=== PATIENT | female | born 1960 | race American Indian/Alaskan Native ===

== ENCOUNTER 2021-01-20 02:06 | Emergency (ER) | payer SELFPAY ==
[2021-01-20 03:50] LABS: Basophils % (Auto) 0.4 % (0.0-1.8); Eosinophils # (Auto) 0.2 K/mm3 (0.0-0.4); Eosinophils % (Auto) 1.8 % (0.0-4.3); Hematocrit 43.7 % (30.3-42.9); Hemoglobin 15.2 gm/dl (10.1-14.3); Lymphocytes # (Auto) 2.5 K/mm3 (1.2-5.4); Lymphocytes % (Auto) 26.3 % (13.4-35.0); Mean Corpuscular HGB Conc 35 % (30-34); Mean Corpuscular Volume 95 fl (79-97); Monocytes # (Auto) 0.4 K/mm3 (0.0-0.8); Monocytes % (Auto) 4.5 % (0.0-7.3); Platelet Count 247 K/mm3 (140-440); Red Blood Count 4.61 M/mm3 (3.65-5.03); Red Cell Distribution Width 14.1 % (13.2-15.2)
--- NOTE | 2021-01-20 03:57 | XRay Report ---
CHEST 2 VIEWS, 01/20/2021 2:32 AM INDICATION: Chest pain COMPARISON: None FINDINGS: Support devices: None. Heart: The cardiac silhouette is normal in size. Lungs/pleura: The lungs are clear of focal airspace disease or significant pleural effusion. Additional findings: No significant acute abnormality. IMPRESSION: 1. No evidence of acute cardiopulmonary process. Signer Name: Stefanie Weathers MD Signed: 01/20/2021 3:53 AM Workstation Name: [id number]
[2021-01-20 04:14] LABS: Alanine Aminotransferase 15 units/L (7-56); Albumin 4.5 g/dL (3.9-5); BUN/Creatinine Ratio 12; Blood Urea Nitrogen 11 mg/dL (7-17); Calcium 9.3 mg/dL (8.4-10.2); Hemolysis Index 12
--- NOTE | 2021-01-20 14:15 | Emergency Department Report ---
ED General Adult HPI - General Chief complaint: High BP Stated complaint: HIGH BP/LT ARM PAIN PUI?: No Time Seen by Provider: 01/20/21 14:08 Source: patient, RN notes reviewed Mode of arrival: Ambulatory Limitations: No Limitations - History of Present Illness Initial comments: The patient was evaluated in the emergency department for symptoms described in the history of present illness. He/she was evaluated in the context of the global COVID-19 pandemic, which necessitated consideration that the patient might be at risk for infection with the virus that causes COVID-19. Institutional protocols and algorithms that pertain to the evaluation of patients at risk for COVID-19 are in a state of rapid change based on informa tion released by regulatory bodies including the CDC and federal and state organizations. These policies and algorithms were followed during the patient's care in the emergency department. Please note that these policies, procedures and recommendations changed on a rapid basis. This is a 60-year-old female. She is not known to myself previously. She is right-hand dominant. Secondary to the Covid pandemic, she lost her insurance. She currently does not have a primary care doctor, and reports that she does not take any antihypertensive medication, although she reports a history of hypert ension. She presents to the ER today with a complaint of nontraumatic left-sided shoulder pain, which started last night. The pain does not radiate to the back, neck or arms. She denies vomiting, diaphoresis and exertional shortness of breath, DVT and pulmonary embolism risk factors. She endorses a sensation of feeling lightheaded without syncope or loss of consciousness, for a few weeks. She is very anxious about her blood pressure, which she states at home was in the 170s. The patient denies headache, neck pain, abdominal pain, vomiting, diaphoresis, urinary symptoms, focal extremity weakness/numbness. She denies Covid symptomatology. She occasionally consumes caffeine. The patient reports feeling very anxious about her high blood pressure. No family history of ischemic heart disease, DVT or pulmonary embolism that she is aware of. Her pain is improved with ibuprofen, acetaminophen, and reassurance to the emergency room. She did not take any medications at home for her pain. -: Sudden Location: left, upper extremity Radiation: non-radiation Quality: aching Consistency: intermittent Improves with: rest Worsens with: movement - Related Data Previous Rx's Medication Instructions Recorded Last Taken Type Acetaminophen [Non-Aspirin Extra 500 mg PO Q6HR PRN #30 tablet 01/20/21 Unknown Rx Strength] Amlodipine Besylate [Norvasc] 2.5 mg PO QDAY #30 tablet 01/20/21 Unknown Rx Aspirin [Aspirin BABY CHEW TAB] 81 mg PO QDAY #30 tab.chew 01/20/21 Unknown Rx Ibuprofen [Motrin] 600 mg PO Q8H PRN #30 tablet 01/20/21 Unknown Rx Allergies Allergy/AdvReac Type Severity Reaction Status Date / Time No Known Allergies Allergy Unverified 01/20/21 02:31 ED Review of Systems ROS: Stated complaint: HIGH BP/LT ARM PAIN Other details as noted in HPI Constitutional: denies: fever Eyes: denies: eye discharge ENT: denies: epistaxis Respiratory: denies: cough Cardiovascular: denies: chest pain Gastrointestinal: denies: abdominal pain Musculoskeletal: arthralgia, myalgia Neurological: weakness (Generalized weakness). denies: headache, numbness, paresthesias Psychiatric: anxiety ED Past Medical Hx - Past Medical History Hx Hypertension: Yes - Social History Smoking Status: Never Smoker - Medications Home Medications: Home Medications Medication Instructions Recorded Confirmed Last Taken Type Acetaminophen [Non-Aspirin Extra 500 mg PO Q6HR PRN #30 tablet 01/20/21 Unknown Rx Strength] Amlodipine Besylate [Norvasc] 2.5 mg PO QDAY #30 tablet 01/20/21 Unknown Rx Aspirin [Aspirin BABY CHEW TAB] 81 mg PO QDAY #30 tab.chew 01/20/21 Unknown Rx Ibuprofen [Motrin] 600 mg PO Q8H PRN #30 tablet 01/20/21 Unknown Rx ED Physical Exam - General Limitations: No Limitations General appearance: alert, anxious, obese - Head Head exam: Present: atraumatic, normocephalic - Eye Eye exam: Present: normal appearance, EOMI, other (Visual acuity intact to finger counting, color perception, reading at a close distance). Absent: nystagmus - ENT ENT exam: Present: normal exam, normal orophraynx, mucous membranes moist, normal external ear exam - Neck Neck exam: Present: normal inspection, full ROM. Absent: tenderness, meningismu s - Respiratory Respiratory exam: Present: normal lung sounds bilaterally. Absent: respiratory distress, wheezes, rales, rhonchi, stridor, decreased breath sounds - Cardiovascular Cardiovascular Exam: Present: regular rate, normal rhythm, normal heart sounds. Absent: bradycardia, tachycardia, irregular rhythm, systolic murmur, diastolic murmur, rubs, gallop - GI/Abdominal GI/Abdominal exam: Present: soft. Absent: distended, tenderness, guarding, rebound, rigid, pulsatile mass - Extremities Exam Extremities exam: Present: normal inspection, full ROM (There is full range of motion in the bilateral lower extremities, and right upper extremity. Full range of motion in the left wrist, and left elbow.), tenderness (There is point tenderness to the left shoulder. The patient is able to AB duct, adduct the left shoulder, elevate, flex, and extend the left shoulder, but has minimal limitation in range of motion secondary to pain), other (2+ pulses noted in the bilateral upper and lower extremities. There is no palpable cord. negative Homans sign. Muscular compartments are soft. The pelvis is stable.). Absent: pedal edema, calf tenderness - Back Exam Back exam: Present: normal inspection, paraspinal tenderness. Absent: tenderness, CVA tenderness (R), CVA tenderness (L) - Neurological Exam Neurological exam: Present: alert, oriented X3, normal gait, other (No facial droop. Tongue midline. Extraocular movements intact bilaterally. Facial s ensation intact to light touch in V1, V2, V3 distribution bilaterally. 5 and a 5 strength in 4 extremities. Sensation intact to light touch in 4 extremities.). Absent: motor sensory deficit - Psychiatric Psychiatric exam: Present: anxious - Skin Skin exam: Present: warm, dry, intact, normal color. Absent: rash ED Course Vital Signs 01/20/21 01/20/21 02:35 14:20 Temperature 97.7 F Pulse Rate 104 H 92 H Respiratory 16 18 Rate Blood Pressure 172/85 Blood Pressure 127/92 [Right] O2 Sat by Pulse 99 100 Oximetry - Reevaluation(s) Reevaluation #1: 01/20/21 16:42 Range of motion in the left shoulder is much improved after Tylenol and ibuprofen, patient smiling, happy, endorses satisfaction with plan of care and reliability to follow-up. ED Medical Decision Making - Lab Data Result diagrams: 01/20/21 03:31 01/20/21 03:31 Vital Signs 01/20/21 01/20/21 02:35 14:20 Temperature 97.7 F Pulse Rate 104 H 92 H Respiratory 16 18 Rate Blood Pressure 172/85 Blood Pressure 127/92 [Right] O2 Sat by Pulse 99 100 Oximetry Lab Results 01/20/21 01/20/21 Range/Units 03:31 03:31 WBC 9.6 (4.5-11.0) K/mm3 RBC 4.61 (3.65-5.03) M/mm3 Hgb 15.2 H (10.1-14.3) gm/dl Hct 43.7 H (30.3-42.9) % MCV 95 (79-97) fl MCH 33 H (28-32) pg MCHC 35 H (30-34) % RDW 14.1 (13.2-15.2) % Plt Count 247 (140-440) K/mm3 Lymph % (Auto) 26.3 (13.4-35.0) % [place] % (Auto) 4.5 (0.0-7.3) % Eos % (Auto) 1.8 (0.0-4.3) % Baso % (Auto) 0.4 (0.0-1.8) % Lymph # (Auto) 2.5 (1.2-5.4) K/mm3 [place] # (Auto) 0.4 (0.0-0.8) K/mm3 Eos # (Auto) 0.2 (0.0-0.4) K/mm3 Baso # (Auto) 0.0 (0.0-0.1) K/mm3 Seg Neutrophils % 67.0 (40.0-70.0) % Seg Neutrophils # 6.5 (1.8-7.7) K/mm3 Sodium 141 (137-145) mmol/L Potassium 4.4 (3.6-5.0) mmol/L Chloride 103.9 (98-107) mmol/L Carbon Dioxide 25 (22-30) mmol/L Anion Gap 17 mmol/L BUN 11 (7-17) mg/dL Creatinine 0.9 (0.6-1.2) mg/dL Estimated GFR > 60 ml/min BUN/Creatinine Ratio 12 % Glucose 97 (65-100) mg/dL Calcium 9.3 (8.4-10.2) mg/dL Total Bilirubin 0.20 (0.1-1.2) mg/dL AST 19 (5-40) units/L ALT 15 (7-56) units/L Alkaline Phosphatase 117 (35-129) units/L Troponin T < 0.010 (0.00-0.029) ng/mL Total Protein 7.6 (6.3-8.2) g/dL Albumin 4.5 (3.9-5) g/dL Albumin/Globulin Ratio 1.5 % - EKG Data -: EKG Interpreted by Nc EKG shows normal: sinus rhythm Rate: normal - EKG Data When compared to previous EKG there are: previous EKG unavailable 01/20/21 16:30 EKG interpreted at 02: 44 Sinus rhythm, 91 bpm, normal axis, QTC 469 ms, left ventricular hypertrophy, borderline atrial enlargement. Not a STEMI. No prior for comparison. - Radiology Data Radiology results: pending, report reviewed, image reviewed [address] [address] XRay Report Signed Patient: LINDSAY GILMORE MR#: [id number] : 1960 Acct:[id number] Age/Sex: 60 / F ADM Date: 01/20/21 Loc: ED Attending Dr: Ordering Physician: ZORA TELLES MD Date of Service: 01/20/21 Procedure(s): XR shoulder 2+V LT Accession Number(s): [id number] cc: ZORA TELLES MD Fluoro Time In Minutes: Left shoulder 3 views INDICATION: Shoulder pain FINDINGS: Mild AC degenerative change. Glenohumeral joint is intact. No acute fracture or dislocation. IMPRESSION: No acute findings. Signer Name: Emerson Fernando MD S igned: 01/20/2021 2:58 PM Workstation Name: [id number] Transcribed By: CW Dictated By: JAMES FERNANDO MD Electronically Authenticated By: JAMES FERNANDO MD Signed Date/Time: 01/20/211457 DD/ [address] [address] XRay Report Signed Patient: LINDSAY GILMORE MR#: [id number] : 1960 Acct:[id number] Age/Sex: 60 / F ADM Date: 01/20/21 Loc: ED Attending Dr: Ordering Physician: RICHMOND MAC MD Date of Service: 01/20/21 Procedure(s): XR chest routine 2V Accession Number(s): [id number] cc: RICHMOND MAC MD Fluoro Time In Minutes: CHEST 2 VIEWS, 01/20/2021 2:32 AM INDICATION: Chest pain COMPARISON: None FINDINGS: Support devices: None. Heart: The cardiac silhouette is normal in size. Lungs/pleura: The lungs are clear of focal airspace disease or significant pleural effusion. Additional findings: No significant acute abnormality. IMPRESSION: 1. No evidence of acute cardiopulmonary process. Signer Name: Stefanie Weathers MD Signed: 01/20/2021 3:53 AM Workstation Name: [id number] Transcribed By: MILLIE Dictated By: Stefanie Weathers MD Electronically Authenticated By: Stefanie Weathers MD Signed Date/Time: 01/20/21352 DD/ 1 - Medical Decision Making Differential diagnosis, including but not limited to: Left shoulder arthritis, capsulitis, hypertension, anxiety Assessment and plan: 60-year-old female, who is not currently tachycardic, tachypneic or hypoxic, who denies DVT and pulmonary embolism risk factors, who is low risk by Wells criteria for pulmonary embolism, GCS of 15, walks with a steady gait, low risk for major adverse cardiac event as per heart score, low risk for adverse event as per Hamler syncope rule: ( 0 points Hamler Syncope Risk Score Low risk 1.9% risk of 30-day serious adverse event (, arrhythmia, [place] full list in Evidence) Presenting today with a primary complaint of nontraumatic reproducible left- sided shoulder pain, without redness, pus or streaking, no evidence of fracture, dislocation, redness, pus or crepitus, no evidence of vesicles on skin, reproducibility, range of motion improved with acetaminophen and ibuprofen, and anxiety and preoccupation with elevated blood pressure. Counseled patient appropriately regarding the aforementioned. Rest, ice, compression, elevation, Tylenol, Motrin, aspirin, and initiate Norvasc for elevated blood pressure. This patient was observed in this department for hours without clinical decompensation. She is suitable to follow-up with an outpatient primary care doctor or water leak repairer. Return precautions are reviewed. Critical care attestation.: If time is entered above; I have spent that time in minutes in the direct care of this critically ill patient, excluding procedure time. ED Disposition Clinical Impression: Elevated blood pressure reading, Left shoulder pain Disposition: - TO HOME OR SELFCARE Is pt being admited?: No Does the pt Need Aspirin: No Condition: Stable Instructions: Shoulder Pain, RICE Therapy for Routine Care of Injuries, [id number], Preventing Hypertension Additional Instructions: Rest, avoid heavy lifting, strenuous physical activities. Alternate ice packs and heat packs as needed to the left arm for physical pain improvement. Patient may participate with rest, ice, compression, elevation therapy as necessary for left shoulder pain, and may want home videos on [employer], or any home streaming service for assistance with home physical therapy. We recommend follow-up with an outpatient primary care doctor, such as Dr. Mccrary, within the next 3 to 5 days. We recommend follow-up with a water leak repairer, such as Dr. Min, within the next 3 to 5 days. Take the pain medication as needed, aspirin as directed, and blood pressure medication as directed. Participate in physical activities as tolerated, and avoid consumption of caffeine, energy drinks or stimulants. Please return to the emergency room right away with new pain, worsened pain, migration of pain, projectile vomiting, change in mental status, confusion, inability to tolerate liquid feeds, new, worsened or different symptoms not present on the initial emergency room evaluation. Prescriptions: Aspirin [Aspirin BABY CHEW TAB] 81 mg PO QDAY #30 tab.chew Ibuprofen [Motrin] 600 mg PO Q8H PRN #30 tablet PRN Reason: Pain Acetaminophen [Non-Aspirin Extra Strength] 500 mg PO Q6HR PRN #30 tablet PRN Reason: Pain , Severe (7-10) Amlodipine Besylate [Norvasc] 2.5 mg PO QDAY #30 tablet Referrals: PETEY MCCRARY MD [Staff Physician] - 3-5 Days KARMA MIN MD [Staff Physician] - 3-5 Days Heart Score - HEART Score History: Slightly suspicious EKG: Non-specific Age: 45-65 Risk factors: 1-2 risk factors Troponin: < normal limit HEART Score: 3 - EKG Read Time Time EKG Completed: 02:42 EKG Read Time: 02:44 - Critical Actions Critical Actions: 0-3 pts:0.9-1.7%risk of adverse cardiac event.Candidate for discharge
[2021-01-20 14:21] VITALS: BP 127/92
[2021-01-20] MEDS ORDERED: IBUPROFEN 800 MG TAB PO ONE (14:23)
[2021-01-20] MEDS ORDERED: ACETAMINOPHEN 325 MG TAB PO ONE (14:23)
--- NOTE | 2021-01-20 15:02 | Electrocardiograph Report ---
[facility] Test Date: 2021-01-20 Test Time: 02:42:01 Pat Name: LINDSAY GILMORE Department: Room: Gender: F Intelligence Manager: [place] : 1960 Requested By: ED DOC Order Number: [id number] Reading MD: Ajay Cabral Measurements Intervals [place] Rate: 91 P: 74 MI: 166 QRS: 85 QRSD: 89 T: 61 QT: 381 QTc: 469 Interpretive Statements Sinus rhythm Biatrial enlargement No previous ECG available for comparison Electronically Signed On 01-20-2021 15:02:02 EDT by Ajay Cabral
--- NOTE | 2021-01-20 15:03 | XRay Report ---
Left shoulder 3 views INDICATION: Shoulder pain FINDINGS: Mild AC degenerative change. Glenohumeral joint is intact. No acute fracture or dislocation . IMPRESSION: No acute findings. Signer Name: Emerson Fernando MD Signed: 01/20/2021 2:58 PM Workstation Name: [id number]
== END 2021-01-20 17:17 | disposition home or self-care (01) ==
LOC: ED 02:06
DX: M25.512 Pain in left shoulder (principal); R03.0 Elevated blood-pressure reading, without diagnosis of hypertension; I10 Essential (primary) hypertension; Z79.82 Long term (current) use of aspirin; Z79.899 Other long term (current) drug therapy
CPT/HCPCS: 36415; 71046; 80053; 84484; 85025; 93005; 99284